=== PATIENT | female | born 1965 | race Asian ===

== ENCOUNTER → 2021-05-14 13:11 | Outpatient (CLI) | payer OTHER, SELFPAY ==
[2021-05-14 20:44] LABS: Free T4, Direct Thyroxine 1.66 ng/dL (0.78-2.19)
[2021-05-14 20:58] LABS: Thyroid Stimulating Hormone 0.764 uIU/mL (0.47-4.68)
== END ==
PROVIDERS: Visit Provider Internal Medicine Endocrinology, Diabetes & Metabolism
DX: E03.8 Other specified hypothyroidism (principal)
CPT/HCPCS: 84439; 84443; 84481

== ENCOUNTER → 2022-02-22 13:33 | Outpatient (CLI) | payer OTHER, SELFPAY ==
[2022-02-22 19:44] LABS: Free T3, Triiodothyronine Free 2.59 pg/mL (2.77-5.27); Free T4, Direct Thyroxine 1.71 ng/dL (0.78-2.19)
[2022-02-22 19:58] LABS: Thyroid Stimulating Hormone 0.052 uIU/mL (0.47-4.68)
[2022-02-26 21:48] LABS: Anti Thyroglobulin Antibody <1.0 IU/mL (0.0-0.9)
== END ==
PROVIDERS: PCP Family Medicine; Visit Provider Family Medicine
DX: E03.8 Other specified hypothyroidism (principal); Z85.850 Personal history of malignant neoplasm of thyroid
CPT/HCPCS: 84439; 84443; 84481; 86800

== ENCOUNTER → 2022-07-25 14:33 | Outpatient (CLI) | payer OTHER, SELFPAY ==
[2022-07-25 20:21] LABS: Free T3, Triiodothyronine Free 3.09 pg/mL (2.77-5.27)
[2022-07-25 20:35] LABS: Thyroid Stimulating Hormone 1.16 uIU/mL (0.47-4.68)
== END ==
PROVIDERS: PCP Family Medicine; Visit Provider Internal Medicine Endocrinology, Diabetes & Metabolism
DX: E03.8 Other specified hypothyroidism (principal); Z85.850 Personal history of malignant neoplasm of thyroid
CPT/HCPCS: 84439; 84443; 84481

== ENCOUNTER → 2023-06-25 13:08 | Outpatient (CLI) | payer OTHER, SELFPAY ==
[2023-06-25 19:33] LABS: Free T3, Triiodothyronine Free 3.75 pg/mL (2.77-5.27); Free T4, Direct Thyroxine 1.58 ng/dL (0.78-2.19)
[2023-06-25 19:47] LABS: Thyroid Stimulating Hormone 0.343 uIU/mL (0.47-4.68)
[2023-07-06 22:09] LABS: Thyroglobulin Level <2.0 ng/mL (.)
== END ==
PROVIDERS: PCP Physician Assistant; Visit Provider Internal Medicine Endocrinology, Diabetes & Metabolism
DX: E03.8 Other specified hypothyroidism (principal)
CPT/HCPCS: 84432; 84439; 84443; 84481

== ENCOUNTER → 2024-03-04 11:26 | Outpatient (CLI) | payer OTHER, SELFPAY ==
[2024-03-04 21:14] LABS: Free T3, Triiodothyronine Free 3.38 pg/mL (2.77-5.27); Free T4, Direct Thyroxine 1.55 ng/dL (0.78-2.19)
[2024-03-04 21:28] LABS: Thyroid Stimulating Hormone 0.576 uIU/mL (0.47-4.68)
[2024-03-06 21:07] LABS: Thyroglobulin Antibodies < 1.0 IU/mL (0.0-0.9)
== END ==
PROVIDERS: PCP Physician Assistant; Visit Provider Physician Assistant
DX: E89.0 Postprocedural hypothyroidism (principal)
CPT/HCPCS: 84432; 84439; 84443; 84481; 86800

== ENCOUNTER → 2025-06-08 09:46 | Outpatient (CLI) | payer OTHER, SELFPAY ==
[2025-06-08 19:27] LABS: Cholesterol 250 mg/dL (140-199); HDL Cholesterol 79 mg/dL (40-60); Triglycerides 77 mg/dL (35-150)
[2025-06-08 19:58] LABS: TSH w/ Reflex to FT4 0.90 uIU/mL (0.47-4.68)
== END ==
PROVIDERS: PCP Physician Assistant; Visit Provider Physician Assistant
DX: E89.0 Postprocedural hypothyroidism (principal); Z13.6 Encounter for screening for cardiovascular disorders
CPT/HCPCS: 80061; 84443